=== PATIENT | male | born 1975 | race African-American/Black ===

== ENCOUNTER 2020-02-05 17:58 | Emergency (ER) | payer MEDICAID ==
[~2020-02-05] VITALS: Ht 182.9 cm; Wt 120.0 kg
[2020-02-05 19:15] LABS: CLARITY URINE CLEAR (CLEAR); COLOR URINE YELLOW (YELLOW); KETONES URINE NEGATIVE (NEGATIVE); LEUKOCYTE ESTERASE URINE NEGATIVE (NEGATIVE); NITRITE URINE NEGATIVE (NEGATIVE); OCCULT BLOOD URINE NEGATIVE (NEGATIVE); PH URINE 6.5 (4.5-8.0); PROTEIN URINE NEGATIVE (NEGATIVE); SPECIFIC GRAVITY URINE 1.004 (1.005-1.030); UROBILINOGEN URINE 0.2 E.U./dL (0.2-1.0)
[2020-02-05 20:21] VITALS: BP 131/74
== END 2020-02-05 20:22 | disposition home or self-care (01) ==
LOC: ER 17:58
DX: R35.0 Frequency of micturition (principal)
CPT/HCPCS: 81003; 82962; 99283